=== PATIENT | female | born 1985 | race Caucasian/White ===

== ENCOUNTER 2016-10-20 17:02 | Emergency (ER) | payer OTHER ==
[~2016-10-20] VITALS: Ht 166.4 cm; Wt 113.4 kg
[~2016-10-20 17:02] MED LIST: ALBUTEROL0.09 MG/A1 INH; AUGMENTIN 875 M1 TAB PO; BUPRENORPHINE HY8 MG SL; CITRANATAL HARM1 SG1 PO; CYCLOBENZAPRINE10 M1 PO; DICLEGIS 10 MG-1 TCP PO; HYDROXYZINE PAM25 MG PO; MOBIC15 M1 PO; MOTRIN 800MG T800 MG PO; NICODERM C21 MG/24 H TOP; PERCOCET 325 MG1 TA2 PO; PREDNISONE20 M1 PO; SUBOXONE 8 MG-1 EACH PO; TUMS ULTRA1000 MG PO; ZITHROMAX250 M2 PO
--- NOTE | 2016-10-20 17:21 | ED INFLUENZA/URI COMPLAINT ---
History of Present Illness General Chief Complaint: Upper Respiratory Sx/Fever Stated Complaint: COUGH, CONGESTION X FEW WEEKS Source: patient Exam Limitations: no limitations Vital Signs & Intake/Output Vital Signs & Intake/Output Vital Signs Date Time Temp Pulse Resp B/P Pulse O2 O2 Flow FiO2 Ox Delivery Rate 10/20 1855 97.2 62 17 128/76 100 Room Air 10/20 1837 98 Room Air 10/20 1759 98 10/20 1708 97.3 66 18 131/82 99 Room Air ED Intake and Output 10/21 0000 10/20 1200 Intake Total 0 Output Total Balance 0 Intake, Oral 0 Patient 250 lb Weight Allergies Coded Allergies: NO KNOWN ALLERGIES (07/21/15) Reconcile Medications Acetaminophen (Tylenol Extra Strength) 500 MG TABLET 3 TAB PO PRN PAIN ( Reported) Albuterol Sulfate (Proair Hfa) 90 MCG HFA.AER.AD 2 PUF INH PRN RESPIRATORY ( Reported) Albuterol Sulfate (Proair Hfa) 90 MCG HFA.AER.AD 2 PUF INH Q4-6 PRN PRN DYSPNEA Albuterol Sulfate 2.5 MG/3 ML (0.083 %) VIAL.NEB 1 Vial INH/LAVERNE Q4P PRN DYSPNEA Armodafinil (Nuvigil) (Unknown Strength) TABLET (Unknown Dose) PO DAILY NARCOLEPSY (Reported) Azithromycin (Zithromax) 250 MG TABLET 1 DP PO AD BRONCHITIS 2 the first day followed by 1 for days 2-5 Buprenorphine HCl/Naloxone HCl (Suboxone 8 MG-2 MG Sl Film) 1 EACH FILM 1 TAB PO BID OPIOID DEPENDENCE (Reported) Calcium Carbonate (TUMS) (Unknown Strength) TAB.CHEW (Unknown Dose) PO PRN GI (Reported) Fluoxetine HCl (Unknown Strength) CAPSULE (Unknown Dose) UNKNOWN (Reported) Ibuprofen/Pseudoephedrine HCl (Advil Cold & Sinus Caplet) 200 MG-30 MG TABLET 2 TAB PO PRN COLD AND SINUS (Reported) Methylprednisolone. (Medrol) 4 MG TAB.DS.PK 1 DP PO AD INFLAMMATION 6 on day 1 then reduce by one tablet daily until gone Triage Note: PT C/O COUGH AND CONGESTION FOR A FEW WEEKS. PT STATES SHE THINKS SHE HAD A VIRUS BUT THINKS SHE NEEDS ABX NOW. Triage Nurses Notes Reviewed? yes Onset: Gradual Duration: day(s): (3) Timing: recent history Severity: moderate Associated Symptoms: cough, fever/chills, nasal congestion, shortness of breath : No Patient currently breastfeeds: No HPI: 31 year old female with 3 week history of fever (subjective), chills, night sweats, cough, nausea and dark green sputum. Patient feels weak and tired. Patient is a daily smoker. History of bronchitis and sinusitis. Past History Travel History Traveled to [place] past 21 day No Medical History Any Pertinent Medical History? 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 No Review of Systems Review of Systems Constitutional: Reports: chills, fever. EENTM: Reports: no symptoms. Respiratory: Reports: cough, short of breath, sputum production. Cardiovascular: Reports: chest pain, palpitations. GI: Reports: no symptoms. Genitourinary: Reports: no symptoms. Musculoskeletal: Reports: no symptoms. Skin: Reports: no symptoms. Neurological/Psychological: Reports: numbness. Denies: ataxia, confusion. Hematologic/Endocrine: Denies: bruising, bleeding, polyuria, polydipsia. Immunologic/Allergic: Reports: no symptoms. All Other Systems: Reviewed and Negative Physical Exam Physical Exam General Appearance: well developed/nourished, alert, awake, mild distress, moderate distress, obese Head: atraumatic, normal appearance Eyes: Bilateral: normal appearance, PERRL, EOMI. Ears, Nose, Throat: normal ENT inspection, nasal congestion Neck: normal inspection, supple, full range of motion Respiratory: rhonchi, wheezing Cardiovascular: regular rate/rhythm Peripheral Pulses: 2+ radial (R), 2+ radial (L) Gastrointestinal: soft, non-tender Extremities: normal inspection, normal capillary refill, normal range of motion, no edema Neurologic/Psych: no motor/sensory deficits, awake, alert, oriented x 3 Skin: intact, normal color, warm/dry Core Measures Severe Sepsis Present: No Septic Shock Present: No Progress Differential Diagnosis: influenza, pneumonia, sinusitis, BRONCHITISI Plan of Care: Orders Procedure Date/time Status RT ED ORDERS 10/20 1736 Active EKG 10/21 1735 Active CHXR, DUONEB, PREDNISONE ORDERED. (CLARITZA SHELLEY,RIKKI) Diagnostic Imaging: Viewed by Me: Radiology Read. Discussed w/RAD: Radiology Read. CXR Impression: PATIENT: KATY SHANKS PRESENT AGE : 31 PATIENT ACCOUNT NO: [id number] : 83 LOCATION: [facility] ORDERING PHYSICIAN: RIKKI JERRY MD SERVICE DATE: 10/20/16-1744 EXAM TYPE: RAD - XRY -CHEST XRAY, PA AND LATERAL EXAMINATION: XR CHEST CLINICAL INFORMATION: Fever, cough, sputum COMPARISON: None TECHNIQUE: 2 views of the chest were obtained. FINDINGS: No significant abnormality is noted involving the heart, lungs, mediastinum, bony thorax or soft tissues. IMPRESSION: No acute cardiopulmonary process DICTATED BY: FERCHO PHIPPS MD DATE/TIME DICTATED:10/20/161841 PLANNING CONSULTANT:DEONDRE DATE/TIME TRANSCRIBED:10/20/161841 CONFIDENTIAL, DO NOT COPY WITHOUT APPROPRIATE AUTHORIZATION. <Electronically signed in Other Vendor System> SIGNED BY: FERCHO PHIPPS MD 10/20/161844 Initial ED EKG: NSR Departure Departure Time of Disposition: 1846 Disposition: HOME OR SELF CARE Condition: Stable Clinical Impression Primary Impression: Bronchitis Secondary Impressions: Tobacco abuse Referrals: PATIENT HAS NO PRIMARY CARE DR (PCP/Family) Additional Instructions: Take the azithromycin and Medrol Dosepak as directed. Use the inhaler as needed. Please follow up with the list of primary care doctors and discuss methods to help stop smoking. Return as needed. Departure Forms: Customer Survey General Discharge Information Prescriptions: Current Visit Scripts Methylprednisolone. (Medrol) 1 DP PO AD #1 DP 6 on day 1 then reduce by one tablet daily until gone Albuterol Sulfate (Proair Hfa) 2 PUF INH Q4-6 PRN PRN DYSPNEA #1 INHAL Azithromycin (Zithromax) 1 DP PO AD #6 TAB 2 the first day followed by 1 for days 2-5 Albuterol Sulfate 1 Vial INH/LAVERNE Q4P PRN DYSPNEA #1 BOX
[2016-10-20] MEDS ORDERED: NUVIGIL150 M1 PO (17:50)
[2016-10-20] MEDS ORDERED: PROAIR HFA8.5 GM INH ×2 (17:50→18:49)
[2016-10-20] MEDS ORDERED: FLUOXETINE HCL40 M1 (17:51)
[2016-10-20] MEDS ORDERED: TYLENOL EXTRA500 M2 PO (17:51)
[2016-10-20] MEDS ORDERED: ADVIL COLD & S1 EACH PO (17:51)
[2016-10-20] MEDS ORDERED: TUMS200 MG PO (17:51)
--- NOTE | 2016-10-20 18:45 | RADIOLOGY REPORT ---
EXAMINATION: XR CHEST CLINICAL INFORMATION: Fever, cough, sputum COMPARISON: None TECHNIQUE: 2 views of the chest were obtained. FINDINGS: No significant abnormality is noted involving the heart, lungs, mediastinum, bony thorax or soft tissues. IMPRESSION: No acute cardiopulmonary process
[2016-10-20] MEDS ORDERED: MEDROL4 M2 PO (18:49)
[2016-10-20] MEDS ORDERED: ZITHROMAX250 M2 PO (18:49)
[2016-10-20 18:55] VITALS: BP 128/76
[2016-10-20] MEDS ORDERED: ALBUTEROL2.5 MG/3 M INH/SOL (18:56)
== END 2016-10-20 19:03 ==
LOC: ERH 17:02
DX: J40 Bronchitis, not specified as acute or chronic (principal); Z72.0 Tobacco use
CPT/HCPCS: 1263; 93005; 93010

== ENCOUNTER 2018-02-21 20:24 | Emergency (ER) | payer OTHER ==
[~2018-02-21] VITALS: Ht 167.6 cm; Wt 85.3 kg
[~2018-02-21 20:24] MED LIST changes: +ADVIL COLD & S1 EACH PO; +ALBUTEROL2.5 MG/3 M INH/SOL; +FLUOXETINE HCL40 M1 PO; +KETOROLAC TROME10 M1 PO; +MEDROL4 M2 PO; +NUVIGIL150 M1 PO; +PENICILLIN V P500 M1 PO; +PROAIR HFA8.5 GM INH; -SUBOXONE 8 MG-1 EACH PO; +SUBOXONE 8 MG-1 EACH SL; +TUMS200 MG PO; +TYLENOL EXTRA500 M2 PO
[2018-02-21 22:45] VITALS: BP 134/80
--- NOTE | 2018-02-21 22:50 | ED GENERAL ADULT ---
History of Present Illness General Chief Complaint: General Adult Stated Complaint: PT HAS A LUMP UNDER THE RT ARM Source: patient Exam Limitations: no limitations Vital Signs & Intake/Output Vital Signs & Intake/Output Vital Signs Date Time Temp Pulse Resp B/P B/P Pulse O2 O2 Flow FiO2 Mean Ox Delivery Rate 02/21 2245 98.8 56 18 134/80 98 Room Air 02/21 2133 Room Air 02/21 2106 98.9 63 18 135/86 98 Room Air ED Intake and Output 02/22 0000 02/21 1200 Intake Total 1000 Output Total Balance 1000 Intake, IV 1000 Patient 188 lb Weight Weight Reported by Patient Measurement Method Allergies Coded Allergies: No Known Allergies (10/23/17) Reconcile Medications Armodafinil (Nuvigil) 150 MG TABLET 2 TAB PO DAILY NARCOLEPSY (Reported) Buprenorphine HCl/Naloxone HCl (Suboxone 8 MG-2 MG Sl Film) 8 MG-2 MG FILM 1 STR SL BID OPIOID DEPENDENCE (Reported) Doxycycline Hyclate 100 MG TABLET 1 TAB PO BID ABSCESS Fluoxetine HCl 40 MG CAPSULE 1 CAP PO DAILY MENTAL HEALTH (Reported) Ibuprofen 600 MG TABLET 1 TAB PO TID PRN PAIN with food Ketorolac Tromethamine 10 MG TABLET 1 TAB PO Q6P PRN dental pain patient treated with IM ketorolac in the emergency department Penicillin V Potassium 500 MG TABLET 1 TAB PO Q6 dental infection Triage Note: PT FROM HOME C/O ABSCESS LIKE BUMP TO PTS RIGHT AXILLARY X1.5 YEARS. PT STATES THAT FOR THE PAST YEAR IN A HALF PT HAD A PEA SIZE ROUND IN SHAPE "BUMP" IN HER ARMPIT. PT HAS NOT SEEN A PCP BECAUSE SHE DOES NOT HAVE ONE. PT STATES OVER THE LAST WEEK SHE BEGAN TO NOTICED THE REDNESS, INCREASE IN SIZE, AND SWELLING. VSS. Triage Nurses Notes Reviewed? yes : No Patient currently breastfeeds: No HPI: 32-year-old woman seen for evaluation of a swollen bump in her right armpit. Patient reports that the lump has been present for the past 1.5 years and has been approximately the size of a pea and nontender in that time. She was last seen by an DESTINATION SPECIALIST when her son was born approximately 2 years ago where she reportedly had a normal breast exam. Over the past 1-1.5 weeks the lump has grown in size and has become markedly tender with overlying redness. She thought it was a "zit" or an "ingrown hair" and tried to "pop it". She was brought here by a friend to get it checked out. She admits to a large amount of stress over the past 6 months where she from her partner of 10 years whom she lived with and had 3 children with. She has incurred significant financial difficulty and that time and has lost reportedly approximately 100 pounds. She admits to smoking 1-2 packs of cigarettes per day and using recreational drugs such as marijuana/cocaine but otherwise denies intravenous drug use. She admits to having several first-degree family members with various forms of cancer including uterine and possibly breast cancer. Review of systems She otherwise denies any headache, fever, chills, vision changes, chest pain, shortness of breath, cough, nausea, vomiting, diarrhea, urinary complaints. (Carl Kwong MD) Past History Travel History Traveled to [place] past 21 day No Medical History Any Pertinent Medical History? 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 No (Carl Kwong MD) Review of Systems Review of Systems Constitutional: Reports: see HPI. (Carl Kwong MD) Physical Exam Physical Exam General Appearance: well developed/nourished, alert, awake, anxious Comments: General - well developed, well nourished young woman in no acute distress HEENT - NCAT, PERRL, EOMI, anicteric sclera, no lymphadenopathy Neck- Supple, no JVD/HJR, no bruits, trachea midline, thyroid normal Axilla-soft fluctuant 0.5 inch area in lower right axilla with overlying erythema and no drainage Cardio - S1, S2 w/o murmurs/gallops/rubs; regular rate and rhythm Resp - Clear to auscultation bilaterally GI - Soft, nontender, nondistended, bowel sounds present Neuro - Awake and alert, CN II - XII grossly intact Extremities - No edema, pulses intact Core Measures ACS in differential dx? No CVA/TIA Diagnosis: No Sepsis Present: No Sepsis Focused Exam Completed? No (Elenita SHELLEY,Carl) Progress Differential Diagnoses I considered the following diagnoses in my evaluation of the patient: Lipoma, abscess, lymphadenopathy, dehydration, polysubstance abuse Plan of Care: Orders Procedure Date/time Status EXTREMETIES CULTURE 02/223 Active HIV (Reflex to HIVCQ) 02/21 2225 Active HEPATITIS PANEL 02/21 2225 Active COMPREHENSIVE METABOLIC PANEL 02/21 2225 Active CBC WITHOUT DIFFERENTIAL 02/21 2225 Complete Laboratory Tests 02/21/185: Anion Gap 9, Estimated GFR > 60, BUN/Creatinine Ratio 11.3, Glucose 95, Calcium 9.5, Total Bilirubin 0.4, AST 28, ALT 28, Alkaline Phosphatase 60, Total Protein 7.4, Albumin 4.4, Globulin 3.0, Albumin/Globulin Ratio 1.5, CBC w Diff NO MAN DIFF REQ, RBC 5.39, MCV 82.0, MCH 27.2, MCHC 33.2, RDW 16.1 H, MPV 8.5, Gran % 55.5, Lymphocytes % 31.3, Monocytes % 7.7, Eosinophils % 4.7, Basophils % 0.8, Absolute Granulocytes 4.3, Absolute Lymphocytes 2.4, Absolute Monocytes 0.6, Absolute Eosinophils 0.4, Absolute Basophils 0.1, Hepatitis A IgM Ab Pending, Hep Bs Antigen Pending, Hep B Core IgM Ab Conf Pending, Hepatitis C Antibody Pending, HIV 1&2 Ab Western Blot NONREACTIVE 02/21/182236: Methadone Screen Cancelled, Barbiturate Screen Cancelled, Ur Phencyclidine Scrn Cancelled, Amphetamines Screen Cancelled, U Benzodiazepines Scrn Cancelled, Urine Cocaine Screen Cancelled, Urine Cannabis Screen Cancelled, Urine Color Cancelled, Urine Clarity Cancelled, Urine pH Cancelled, Ur Specific [place] Cancelled, Urine Protein Cancelled, Urine Ketones Cancelled, Urine Nitrite Cancelled, Urine Bilirubin Cancelled, Urine Urobilinogen Cancelled, Ur Leukocyte Esterase Cancelled, Ur Microscopic Cancelled, Urine Hemoglobin Cancelled, Urine Glucose Cancelled Microbiology 02/22 0005 EXTREMITIE: Culture & Sensitivity - RECD 02/22 0005 EXTREMITIE: Gram Stain - RECD Initial ED EKG: none Comments: Right axilla mass has reportedly changed in size and character over the past week but has been present for the past 1.5 years and been reportedly stable. It has never been evaluated however. She does admit to multiple first-degree family members with various cancers including uterine and possibly breast cancer. Patient's "100 pound" weight loss over the past 6 months may be possibly due to her psychosocial stressors however this is excessive. Patient's vital signs and lab work are otherwise unremarkable including a negative HIV and hepatitis panel. Physical examination does demonstrate a tender fluctuant mass in the right axilla that underwent a bedside incision and drainage that demonstrated a collection of purulent/serosanguineous material that was sent for culture. The incision was packed. Patient is to be discharged home with oral doxycycline to complete a 10-day total course. Patient is to follow-up next week for a wound check. (Carl Kwong MD) Departure Departure Disposition: HOME OR SELF CARE Condition: Stable Clinical Impression Primary Impression: Abscess Referrals: Patient Has No Primary Care Dr (PCP/Family) Additional Instructions: Please return to the ED next week for a wound check. Take doxycycline as directed, be sure to finish this medication. Please follow-up with your primary care provider after discharge. Please return to the ED if you are worse or develop fever/chills. Departure Forms: Customer Survey General Discharge Information Prescriptions: Current Visit Scripts Ibuprofen 1 TAB PO TID PRN PAIN #30 TAB with food Doxycycline Hyclate 1 TAB PO BID #20 TAB (Carl Kwong MD) Departure Comments I saw and personally evaluated the patient and angry with Dr. Urbina's evaluation. 1 inch abscess in the right axilla. She had a cyst there for a year. Bedside ultrasound revealed a collection. The patient consented to I&D. Under sterile technique and local anesthesia with 5 mL of 1% lidocaine without epinephrine in a size 11 scalpel blade. The area was incised and drained. Bloody pus was returned. The abscess cavity was cleaned with peroxide. Packed with iodoform. Bacitracin and a sterile dressing were applied. The patient tolerated the procedure well. Culture was sent. The patient was told to return to the emergency department for reevaluation and 48 hours. She was told that should the collection recur she would need to follow-up with the primary care physician. (Francisco Haley DO) Procedures Incision and Drainage Site: Right axilla Blade Size: 11 I & D Procedure: Yes: betadine prep, sterile drapes applied, sterile dressing applied, wick placed. (Carl Kwong MD) Critical Care Note Critical Care Note Critical Care Time: non-applicable (Carl Kwong MD)
[2018-02-21 22:53] LABS: ABSOLUTE BASOPHIL COUNT 0.1 /CUMM (0.0-0.2); ABSOLUTE EOSINOPHIL COUNT 0.4 /CUMM (0.0-0.7); ABSOLUTE GRANULOCYTE CT 4.3 /CUMM (1.4-6.5); ABSOLUTE LYMPH COUNT 2.4 /CUMM (1.2-3.4); ABSOLUTE MONOCYTE COUNT 0.6 /CUMM (0.10-0.60); BASOPHIL % 0.8 % (0.0-2.0); EOSINOPHIL % 4.7 % (0-5); GRANULOCYTE % 55.5 % (42.2-75.2); HEMATOCRIT 44.2 % (37-47); MEAN CORPUSCULAR HGB 27.2 PG (27.0-31.0); MEAN CORPUSCULAR HGB CONC 33.2 G/DL (33.0-37.0); MEAN PLATELET VOLUME 8.5 FL (7.4-10.4); PLATELET COUNT 313 /CUMM (130-400); RBC DISTRIBUTION WIDTH 16.1 % (11.5-14.5); RED BLOOD CELL CT 5.39 /CUMM (4.20-5.40); WHITE BLOOD CELL COUNT 7.7 /CUMM (4.8-10.8)
[2018-02-22] MEDS ORDERED: DOXYCYCLINE HY100 M4 PO (00:28)
[2018-02-22] MEDS ORDERED: IBUPROFEN600 M1 PO (00:38)
== END 2018-02-22 01:02 ==
LOC: ERH 20:24
PROVIDERS: Internal Medicine Interventional Cardiology
DX: L02.411 Cutaneous abscess of right axilla (principal)
CPT/HCPCS: 87184; 80307; 87070; 87147; 87389; J2001